=== PATIENT | female | born 2000 | race Two or more races ===

== ENCOUNTER 2022-08-05 16:49 | Inpatient (IN) | payer OTHER ==
[~2022-08-05] VITALS: Ht 154.9 cm; Wt 2.3 kg
[2022-08-05] MEDS ORDERED: PRENATAL TABLE1 EAC5 (17:44)
== END 2022-08-08 12:05 | disposition home or self-care (01) | DRG 788 ==
LOC: LDR 16:49 → OB/GYN 16:49 → O/R 22:47 → OB/GYN 08-06 00:02
PROVIDERS: ADMIT Obstetrics & Gynecology; ATTEND Obstetrics & Gynecology
PROC: 4A1HXCZ Monitoring of Products of Conception, Cardiac Rate, External Approach (ICD-10-PCS; 2022-08-05)
PROC: 10D00Z1 Extraction of Products of Conception, Low, Open Approach (ICD-10-PCS; principal; 2022-08-05 22:00)
DX: O36.5930 Maternal care for other known or suspected poor fetal growth, third trimester, not applicable or unspecified (principal); Z3A.36 36 weeks gestation of pregnancy; Z37.0 Single live birth; O69.81X0 Labor and delivery complicated by cord around neck, without compression, not applicable or unspecified; O36.8330 Maternal care for abnormalities of the fetal heart rate or rhythm, third trimester, not applicable or unspecified; Z20.822 Contact with and (suspected) exposure to COVID-19